=== PATIENT | male | born 1990 | race Two or more races ===

== ENCOUNTER 2022-12-15 15:14 | Emergency (ER) | payer OTHER ==
[~2022-12-15] VITALS: Ht 180.3 cm; Wt 127.0 kg
[~2022-12-15 15:14] MED LIST: CLIN150 PO; IBUP400 PO; OXYACE5T PO; SULTRIDS PO; Silvadene20 GM TOP; TRAZ50 PO
[2022-12-15] MEDS ORDERED: DOXY100 PO (16:31)
== END 2022-12-15 16:40 | disposition home or self-care (01) ==
LOC: ER 15:14
DX: S41.111A Laceration without foreign body of right upper arm, initial encounter (principal); S93.401A Sprain of unspecified ligament of right ankle, initial encounter; X50.1XXA Overexertion from prolonged static or awkward postures, initial encounter; Z79.899 Other long term (current) drug therapy; Z87.891 Personal history of nicotine dependence
CPT/HCPCS: 12002; 73610; 90471; 90714; 96372-59; 99283-25; J1885